=== PATIENT | female | born 2005 | race Caucasian/White ===

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

== ENCOUNTER 2024-07-31 14:04 | Outpatient (CLI) | payer MEDICAID, SELFPAY ==
--- NOTE | 2024-07-31 14:00 | CRLHL7_ITS ---
For Patients: As a result of the Century Cures Act, medical imaging exams and procedure reports are released immediately into your electronic medical record. You may view this report before your referring provider. If you have questions, please contact your health care provider. INDICATION: First trimester scan, establish dates. COMPARISON: None. TECHNIQUE: Real-time hart-scale imaging of the pelvis was performed. FINDINGS: Sonographic imaging demonstrates a single living intrauterine gestation. The embryo demonstrates a regular cardiac rate measuring 167 beats per minute. The embryo`s crown-rump length measurement of 5.9 cm corresponds to a gestational age of 12 weeks 3 days with a sonographic due date of 02/09/2025. There is a normal-appearing yolk sac. There are no gross abnormalities noted within the embryo at this early state of development. The gestational sac has a normal appearance. There is no evidence of a perigestational hemorrhage. The amount of fluid within the sac appears appropriate for gestational age. The cervix is closed. The myometrium appears normal. Normal right ovary. Left ovary not visualized. There are no suspicious fluid collections noted in the cul-de-sac. IMPRESSION: A single living intrauterine with sonographic gestational age 12 weeks 3 days and a sonographic due date of 02/09/2025. Dictated by Jono Leigh MD @ 08/01/2024 9:41:20 AM (Electronically Signed)
--- OUTSIDE RECORDS SUMMARY | 2024-07-31 14:07 | XMS_ITS | Clinical Summary ---
Author Organization [employer] [facility] Address [place], [place] [address] Care Team Providers Care Licensed Sales Assistant Name Role Phone Pcp, No Primary Care Provider Unavailabl e Allergies No known active allergies Medications Medication Sig Dispensed Refills Start Date End Date Status folic acid 1 mg tabletIndications:Jaja migravida in first trimester Take 1 Tablet (1 mg) by mouth once daily. 90 Tablet 03/23/2022 Active Social History Tobacco Use Types Packs/Day Years Used Date Smoking Tobacco: Never Smokeless Tobacco: Never Social Connections Answer Date Recorded Frequency of Communication with Friends and Fami ly Not on file 03/23/2022 Sex and Gender Information Value Date Recorded Sex Assigned at Not on file Gender Identity Not on file Sexual Orientation Not on file Obstetrics History Para Term AB IAB SAB Ectopic Multiple Livin g Live Births 1 Date Outcome GA Total Labor Labor/2nd/3rd Weight Sex Type Anes PTL Trisha A1 A5 Name Clin Last Filed Vital Signs Vital Sign Reading [...] Mass Index 20.12 03/23/2022 3:03 PM CDT Plan of Treatment Health Maintenance Due Date Last Done Comments Well Child Check for age 3-20 01/17/2007 Tdap 02/17/2015 Depression screening for age 12+ 2016 HIV for age 15-65 02/17/2019 HPV series for age 9-26 (1 - 3-dose series) 02/17/2019 Chlamydia for age 16-24 2020 Hepatitis C screening for ag e 18-79 02/17/2022 BMI (ht and wt on same day) for age 18+ 03/23/2023 03/23/2022, 03/23/2022 Tetanus booster 2024 COVID-19 vaccine series (2022- season) 2024 Influenza for age 9-49 07/07/2024 Meningococcal series for age 11-21 Aged Out No longer eligible b ased on patient's age to complete this topic Pneumococcal series for age 6-64 Aged Out No longer eligible b ased on patient's age to complete this topic Care Teams Licensed Sales Assistant Relationship Specialty Start Date End Date Pcp, No . PCP - General 03/23/22
== END 2024-07-31 14:05 | disposition home or self-care (01) ==
LOC: US 14:05
PROVIDERS: Visit Provider Registered Nurse
DX: Z34.91 Encounter for supervision of normal pregnancy, unspecified, first trimester (principal); Z3A.12 12 weeks gestation of pregnancy
CPT/HCPCS: 76801; 76817; T1013

== ENCOUNTER 2024-07-31 14:55 | Outpatient (CLI) | payer MEDICAID, SELFPAY ==
--- OUTSIDE RECORDS SUMMARY | 2024-07-31 14:58 | XMS_ITS | Clinical Summary ---
Author Organization [facility] Address [place], [place] [address] Care Team Providers Care Flattening Machine Operator Name Role Phone Pcp, No Primary Care [...] age to complete this topic Care Teams Flattening Machine Operator Relationship Specialty Start Date End Date Pcp, No . PCP - General 03/23/22
[2024-07-31 18:42] LABS: Chlamydia DNA Amplified* NOT DETECTED (No Detected); GC DNA Amplified* NOT DETECTED (No Detected)
== END 2024-07-31 14:56 | disposition home or self-care (01) ==
PROVIDERS: Visit Provider Registered Nurse
DX: Z34.91 Encounter for supervision of normal pregnancy, unspecified, first trimester (principal); Z3A.12 12 weeks gestation of pregnancy
CPT/HCPCS: 76817; 82728; 83540; 86592; 86703; 86704; 86706; 86762; 86787; 86803; 86850; 86900; 86901; 87086; 87340; 87491; 87591

== ENCOUNTER 2024-09-24 13:45 | Outpatient (CLI) | payer MEDICAID, SELFPAY ==
--- OUTSIDE RECORDS SUMMARY | 2024-09-24 13:47 | XMS_ITS | Clinical Summary ---
Author Organization [employer] [facility] Address [place], [place] [address] Care Team Providers Care Dog Warden Name Role Phone Pcp, No Primary Care [...] 03/23/2022 Tetanus booster 2024 COVID-19 vaccine series (2023- season) 2024 Influenza for age 9-49 07/07/2024 Meningococcal series for age 11-21 Aged Out No longer eligible b ased on patient's age to complete this topic Pneumococcal series for age 6-64 Aged Out No longer eligible b ased on patient's age to complete this topic Care Teams Dog Warden Relationship Specialty Start Date End Date Pcp, No . PCP - General 03/23/22
--- NOTE | 2024-09-24 14:00 | CRLHL7_ITS ---
For Patients: As a result of the Century Cures Act, medical imaging exams and procedure reports are released immediately into your electronic medical record. You may view this report before your referring provider. If you have questions, please contact your health care provider. INDICATION: survey. TECHNIQUE: Conventional transabdominal two-dimensional grayscale ultrasound examination. COMPARISON: None. FINDINGS: There is a living fetus with gestational age of 20 weeks 2 days by LMP and today`s measurements. EDC is 02/09/2025. BPD: 4.9 cm, 20 weeks 6 days Head circumference: 17.5 cm, 20 weeks Abdominal circumference: 15.1 cm, 20 weeks 2 days Femur length: 3.2 cm, 19 weeks 6 days HC/AC: 1.16 The weight is estimated at 332 grams, the 35th percentile. The heart rate is measured at 154 beats per minute and the rhythm appears regular. The head and spine are grossly intact. No gross facial abnormality is evident. The upper lip is intact. Four cardiac chambers are demonstrated. The heart and stomach appear to be on the same side. The diaphragm is intact. Two kidneys and a bladder are demonstrated. The cord insertion is normal and three cord vessels are noted. Four extremities are demonstrated. The amniotic fluid volume is within normal limits. The placenta is posterior with no evidence of previa. The placental cord insertion is marginal, measured at 1.7 cm from the edge of the placenta. The cervical length is normal at 3.4 cm. IMPRESSION: 1. Living fetus with gestational age of 20 weeks 2 days by LMP and today`s measurements. EDC is 02/09/2025. 2. No anomaly evident. 3. Marginal placental cord insertion. Dictated by Ortega Young MD @ 09/25/2024 10:56:48 AM (Electronically Signed)
== END 2024-09-24 13:46 | disposition home or self-care (01) ==
LOC: US 13:45
PROVIDERS: Visit Provider Midwife
DX: Z34.92 Encounter for supervision of normal pregnancy, unspecified, second trimester (principal); Z3A.20 20 weeks gestation of pregnancy
CPT/HCPCS: 76805; T1013

== ENCOUNTER 2024-10-04 17:15 | Outpatient (CLI) | payer MEDICAID, SELFPAY ==
--- OUTSIDE RECORDS SUMMARY | 2024-10-04 17:18 | XMS_ITS | Clinical Summary ---
Author Organization [facility] Address [place], [place] [address] Care Team Providers Care Hand Rigger Name Role Phone Pcp, No Primary Care [...] age to complete this topic Care Teams Hand Rigger Relationship Specialty Start Date End Date Pcp, No . PCP - General 03/23/22
[2024-10-04 17:31] VITALS: PULSE 88; O2SAT 100
[2024-10-04 17:34] VITALS: BP 111/56; PULSE 81
[2024-10-04 17:40] VITALS: RESP 18; TEMP 36.7
--- NOTE | 2024-10-04 18:02 | CRLHL7_ITS ---
For Patients: As a result of the Century Cures Act, medical imaging exams and procedure reports are released immediately into your electronic medical record. You may view this report before your referring provider. If you have questions, please contact your health care provider. INDICATION: Lower abdominal pain/cramping TECHNIQUE: Ultrasound OB pelvis transabdominal. Real-time hart-scale imaging of the fetus was performed. COMPARISON: September 24, 2024 FINDINGS: Sonographic imaging demonstrates a single living intrauterine gestation. Fetus demonstrates a regular cardiac rate of 150 beats per minute. Fetus has a vertex orientation. Amniotic fluid volume appears normal. Single deepest pocket measures 4.88 centimeters. Posterior placenta. No previa. Cervical length of 3.0 centimeters. IMPRESSION.: Viable intrauterine . No abnormalities seen. Amniotic fluid appears normal, single deepest pocket measures 4.8 centimeters. Posterior placenta. No previa. Cervical length of 3.0 centimeters. Recommend continued label pinker follow-up as clinically indicated. Dictated by Alcon Oleary MD @ 10/04/2024 8:08:46 PM (Electronically Signed)
[2024-10-04 18:09] LABS: Appearance Urine Cloudy (Clear); Bilirubin Urine Negative (Negative); Blood Urine Negative (Negative); Color Urine Yellow (Yellow); Glucose Urine Negative (Negative); Ketones Urine Negative (Negative); Leukocyte Esterase Urine Negative (Negative); Nitrite Urine Negative (Negative); Protein Urine Negative (Negative); Specific Gravity Urine 1.025 (1.000-1.030); Urobilinogen Urine 0.2 (0.2-1.0)
[2024-10-04 18:12] LABS: Basophils Absolute Auto 0.03 K/uL (0.00-0.30); Basophils Percent Auto 0.4 % (0.0-3.0); Eosinophils Absolute Auto 0.13 K/uL (0.00-0.50); Eosinophils Percent Auto 1.7 % (0.0-7.0); Hematocrit 33.9 % (33.0-51.0); Hemoglobin* 10.9 gm/dL (12.0-16.0); Immature Granulocytes Abs Auto 0.01 K/uL (0.00-0.30); Immature Granulocytes Pct Auto 0.1 %; Lymphocytes Absolute Auto 1.61 K/uL (0.90-2.90); Lymphocytes Percent Auto 20.7 % (20-44); Mean Corpuscular HGB Conc 32 gm/dL (32-36); Mean Corpuscular Hemoglobin 26 pg (26-34); Mean Corpuscular Volume 82 fL (80-100); Monocytes Percent Auto 5.9 % (0.0-11.0); Neutrophils Absolute Auto 5.55 K/uL (1.7-7.0); Neutrophils Percent Auto 71.2 % (42.0-72.0); Platelet Count* 210 K/uL (140-440); RDW Coefficient of Variation % 14.5 % (11.5-15.5); Red Blood Count 4.16 m/uL (4.00-5.20); White Blood Count* 7.79 K/uL (4.50-11.00)
[2024-10-04 18:15] LABS: Slide Review Reflex No
[2024-10-04 18:32] LABS: RBC Urine 0-2 (0-2); WBC Urine 0-2 (0-5)
[2024-10-04 18:33] LABS: Amorphous Sediment Urine Moderate; Clue Cells No Clue Cells Seen (None Seen); Trichomonas No Trichomonas Seen (None Seen); Yeast No Yeast Seen (None Seen)
[2024-10-04 19:44] LABS: Trichomonas No Trichomonas Seen (None Seen); Yeast No Yeast Seen (None Seen)
[2024-10-04 19:45] LABS: Clue Cells No Clue Cells Seen (None Seen)
--- NOTE | 2024-10-04 20:13 | CRLHL7_ITS ---
For Patients: As a result of the Cures Act, medical imaging exams and procedure reports are released immediately into your electronic medical record. You may view this report before your referring provider. If you have questions, please contact your health care provider. Indication: Right lower quadrant pain Technique: Sonographic evaluation of the right lower quadrant and kidneys Comparison: None Findings: Right kidney: 12.4 x 6.4 x 8.6 centimeters. Moderate hydronephrosis. No calculi. Left kidney: 10.7 x 5.5 x 5.0 centimeters. No hydronephrosis. No calculi. Other: Appendix not visualized. Impression: 1. Moderate right hydronephrosis. 2. Appendix not visualized. Dictated by Kwaku Pineda MD @ 10/04/2024 11:05:14 PM (Electronically Signed)
--- NOTE | 2024-10-04 20:53 | P.OBLDTN_ITS ---
OB - Triage/Final Diagnosis Visit Information Date of evaluation: 10/04/24 Narrative: Beatriz is a 19 year old 2 para 1 at 21.5 weeks gestation by LMP, who presents with abdominal pain. The refrigeration unit repairer via the Ipad was used for this visit. She states that she has had abdominal pain on and off for about a week but it is worse today. It is low below the umbilicus and radiates to the right side. She feels that it comes and goes so has not taken an medications. She denies body aches, fever, chills, nausea, vomiting, urinary symptoms, vaginal pain or burning, discharge, vaginal bleeding and other associated symptoms. She is appreciating good movement. A wet prep was collected by the RN but it was very painful for the patient and blood was noted on the swab. A UA and CBC were also collected. Labs did all come back normal. OB US was performed and showed a viable and active fetus without cervical shortening, an intact placenta, and no free fluid. A speculum exam was performed and she was found to be closed with a scant amount of bright red bleeding noted from the OS and white to hart discharge without odor. A second wet prep was collected with the speculum to ensure a good sample but it was also negative. Dr. Boyd was consulted for further advice and it was decided to offer an abdominal US to which she is agreeable. We discussed possible causes for abdominal pain and vaginal bleeding and what we have done to r/o these causes. We reviewed in depth reasons to return including infection, increased bleeding, increased pain or development of other symptoms. Evaluation Laboratory results: Laboratory Tests 10/04/24 10/04/24 10/04/24 Range/Units 19:30 18:05 17:37 WBC 7.79 (4.50-11.00) K/uL RBC 4.16 (4.00-5.20) m/uL Hgb 10.9 L (12.0-16.0) gm/dL Hct 33.9 (33.0-51.0) % MCV 82 (80-100) fL MCH 26 (26-34) pg MCHC 32 (32-36) gm/dL RDW Coeff of Alondra 14.5 (11.5-15.5) % Plt Count 210 (140-440) K/uL Neut % (Auto) 71.2 (42.0-72.0) % Lymph % (Auto) 20.7 (20-44) % Summers % (Auto) 5.9 (0.0-11.0) % Eos % (Auto) 1.7 (0.0-7.0) % Baso % (Auto) 0.4 (0.0-3.0) % Neut # (Auto) 5.55 (1.7-7.0) K/uL Lymph # (Auto) 1.61 (0.90-2.90) K/uL Summers # (Auto) 0.50 (0.00-0.90) K/UL Eos # (Auto) 0.13 (0.00-0.50) K/uL Baso # (Auto) 0.03 (0.00-0.30) K/uL Abs Immat Gran (auto) 0.01 (0.00-0.30) K/uL Imm/Tot Granulo (auto) 0.1 % Urine Color Yellow (Yellow) Urine Appearance Cloudy A (Clear) Urine pH 7.0 (5.0-8.5) Ur Specific Ferguson 1.025 (1.000-1.030) Urine Protein Negative (Negative) Urine Glucose (UA) Negative (Negative) Urine Ketones Negative (Negative) Urine Blood Negative (Negative) Urine Nitrite Negative (Negative) Urine Bilirubin Negative (Negative) Urine Urobilinogen 0.2 (0.2-1.0) Ur Leukocyte Esterase Negative (Negative) Urine RBC 0-2 (0-2) Urine WBC 0-2 (0-5) Ur Squamous Epith Cells None (None-Few) Amorphous Sediment Moderate A (None) Urine Bacteria None (None) Vaginal Trichomonas No Trichomonas Seen No Trichomonas Seen (None Seen) Vaginal Yeast No Yeast Seen No Yeast Seen (None Seen) Vaginal Clue Cells No Clue Cells Seen No Clue Cells Seen (None Seen) Vital signs: Vital Signs - 24 hr 10/04/24 17:31 10/04/24 17:34 10/04/24 17:40 Temperature 98.1 F Pulse Rate 81 Respiratory Rate 18 Blood Pressure 111/56 L Pulse Oximetry 100 Fetus (Single) Heart Rate Baseline: 150 (per doppler)
[2024-10-04 20:56] VITALS: PULSE 81; RESP 16; O2SAT 99
[2024-10-04 20:57] VITALS: BP 116/56; PULSE 76
--- NOTE | 2024-10-04 22:43 | PC.OBNST ---
NST Note NST Note Start: 10/04/24 22:41 Freq: Status: Active Protocol: Document 10/04/24 22:42 BRM (Rec: 10/04/24 22:43 BRM Desktop) NST Note 2 Para (# of births) 1 EDC 02/09/25 Gestational Age In Weeks & Days 21 Weeks & 5 Days Patient Presented with Complaint(s) of Contractions/cramping,Pain If Pain, describe location lower abdomen across pelvis Reactive Yes Appropriate for Gestational Age Yes SUSAN Winston Date 10/04/24 Reactive Yes Appropriate for Gestational Age Yes SUSAN Ho CNM Date 10/04/24 OB NST charge Yes Complete NST Note via Write Note Yes The provider's electronic signature indicates the NST is reactive/appropriate for gestational age. *Note to provider: If an addendum is required, open the patient's chart and click on the note under the Nurse/Allied Health tab.
== END 2024-10-04 22:15 | disposition home or self-care (01) ==
LOC: OB OUT 17:17 → OB 17:18
PROVIDERS: Advanced Practice Midwife; Visit Provider Obstetrics & Gynecology
DX: R10.31 Right lower quadrant pain (principal); N13.30 Unspecified hydronephrosis
CPT/HCPCS: 36415; 59025; 76705; 76815; 81001; 81003; 85025; 87210; G0463

== ENCOUNTER 2024-11-21 09:04 | Outpatient (CLI) | payer MEDICAID, SELFPAY ==
--- NOTE | 2024-11-21 09:15 | CRLHL7_ITS ---
For Patients: As a result of the Century Cures Act, medical imaging exams and procedure reports are released immediately into your electronic medical record. You may view this report before your referring provider. If you have questions, please contact your health care provider. OB ULTRASOUND LMP: 05/05/2024. KRZYSZTOF by LMP: 02/09/2025. GA: 28 w, 4 d. Single. INDICATION: Marginal cord insertion. TECHNIQUE: Real time grayscale imaging of the fetus was performed. Transabdominal. CERVIX: Not visualized. POSITIONING: Vertex. AMNIOTIC FLUID: 6.5 cm. SDP (N: greater than 2 x 1 cm) PLACENTA: Technique: Transabdominal. PLACENTA POSITION: Posterior. DOPPLER: heart rate: 141 bpm. BIOMETRY: BPD: 7.4 cm. 29 w, 5 d, 74 percent. HC: 26.6 cm. 29 w, 0 d, 30 percent. AC: 23.7 cm. 28 w, 0 d, 27 percent. FL: 5.1 cm. 27 w, 2 d, 8 percent. FL/AC ratio: 21.46 percent. HC/AC ratio: 1.12. EFW: 1154 g. Weight: 2 lbs, 9 oz. age by this US: 28 w, 4 d. KRZYSZTOF by this US: 02/09/2025. Percentile by KRZYSZTOF: 18.2 percent. IMPRESSION: 1. Sonographic gestational age 28 weeks 4 days and sonographic due date 02/09/2025. Good correlation with dates. Normal interval growth. 2. Estimated weight 18th percentile. Abdominal circumference 27th percentile. Jono Leigh M.D. Diagnostic Radiologist [email or web address] GALINA/garth liang/Dictated by: Jono Leigh MD @ 11/21/2024 10:26:00 AM (Electronically Signed)
== END 2024-11-21 09:05 | disposition home or self-care (01) ==
LOC: US 09:04
PROVIDERS: Visit Provider Registered Nurse
DX: O43.193 Other malformation of placenta, third trimester (principal); Z3A.28 28 weeks gestation of pregnancy
CPT/HCPCS: 76816; 86592; T1013

== ENCOUNTER 2024-12-02 11:12 | Outpatient (CLI) | payer MEDICAID, SELFPAY ==
--- NOTE | 2024-12-02 11:30 | CRLHL7_ITS ---
For Patients: As a result of the Century Cures Act, medical imaging exams and procedure reports are released immediately into your electronic medical record. You may view this report before your referring provider. If you have questions, please contact your health care provider. INDICATION: Flank pain right lower quadrant pain. TECHNIQUE: Limited ultrasound examination of the abdomen, kidneys and bladder was performed. Grayscale and color Doppler images were obtained. COMPARISON: Ultrasound abdomen 10/04/2024. FINDINGS: Right kidney: 12.8 x 6.2 x 6.2 cm. Normal in size and echogenicity. Normal cortex. No suspicious renal masses. Moderate hydroureteronephrosis. 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 Left kidney: 9.2 x 5.0 x 4.0 cm. Normal in size and echogenicity. Normal cortex. No suspicious renal masses. No hydronephrosis or obstructive calculus identified. Bladder: Unremarkable. Prevoid volume of 11 mL. Postvoid volume of 8 mL. Color Doppler images reveal a normal left ureteral jet. No normal right ureteral jet. Other: No blind-ending tubular structure seen in the right lower quadrant, limited evaluation for acute appendicitis on this ultrasound examination. IMPRESSION: 1. Moderate right-sided hydronephrosis without obstructing mass lesion or urinary calculus identified. Recommend CT for further evaluation. 2. Limited evaluation for acute appendicitis, no normal appendix was identified sonographically. Dictated by Jayden Ivey MD @ 12/02/2024 2:39:38 PM (Electronically Signed)
== END 2024-12-02 11:13 | disposition home or self-care (01) ==
LOC: US 11:13
PROVIDERS: Visit Provider Advanced Practice Midwife
DX: R10.31 Right lower quadrant pain (principal); N13.30 Unspecified hydronephrosis
CPT/HCPCS: 76705; 87086

== ENCOUNTER 2024-12-30 08:57 | Outpatient (CLI) | payer MEDICAID, SELFPAY ==
--- NOTE | 2024-12-30 09:15 | CRLHL7_ITS ---
For Patients: As a result of the Century Cures Act, medical imaging exams and procedure reports are released immediately into your electronic medical record. You may view this report before your referring provider. If you have questions, please contact your health care provider. OB ULTRASOND FOLLOWUP LIMITED, 12/30/2024 CLINICAL HISTORY: Marginal cord insertion. TECHNIQUE: Transabdominal OB ultrasound. Real time hart scale imaging of the fetus was performed. COMPARISON: 11/21/2024, 10/04/2024, 09/24/2024. FINDINGS: Gestation: Single. LMP: 05/05/2024. KRZYSZTOF by LMP: 02/09/2025. GA: 34 weeks 1 day. Cervix: Not visualized. Positioning: Vertex. Amniotic Fluid: 5.2 cm. Placenta: Technique: TA. Placenta Position: Posterior. Dopplers: Heart Rate: 129 bpm. Biometry: BPD: 8.4 cm, 33 weeks 5 days. 36.8% HC: 30.4 cm, 33 weeks 6 days. 10.9% AC: 29.1 cm, 33 weeks 1 day. 23.5% FL: 6.1 cm, 31 weeks 3 days. <3% EFW: 9 grams, 4 lb 8 oz. Age by this US: 33 weeks 0 days. KRZYSZTOF by this US: 02/17/2025. Percentile by KRZYSZTOF: 11.4% IMPRESSION: 1. Sonographic gestational age 33 weeks 0 days and sonographic due date 02/17/2025. Sonographic age 8 days behind the clinical age. 2. Estimated weight 11th percentile. Abdominal circumference 24th percentile. Femur length less than 3rd percentile. Jono Leigh M.D. Diagnostic Radiologist [email or web address] Transcribed: 1:40 pm DW/Dictated by: Jono Leigh MD @ 12/30/2024 12:53:00 PM (Electronically Signed)
== END 2024-12-30 08:58 | disposition home or self-care (01) ==
LOC: US 08:58
PROVIDERS: Visit Provider Registered Nurse
DX: O43.193 Other malformation of placenta, third trimester (principal); O36.5930 Maternal care for other known or suspected poor fetal growth, third trimester, not applicable or unspecified; Z3A.33 33 weeks gestation of pregnancy
CPT/HCPCS: 76816; T1013

== ENCOUNTER 2025-01-13 11:23 | Outpatient (CLI) | payer MEDICAID, SELFPAY | END 2025-01-13 11:24 | disposition home or self-care (01) | LOC: NFLDREF 01-15 05:41 | PROVIDERS: Visit Provider Physician Assistant | DX: Z34.83 Encounter for supervision of other normal pregnancy, third trimester (principal) | CPT/HCPCS: 87081; 87653 ==

== ENCOUNTER 2025-01-21 12:07 | Outpatient (CLI) | payer MEDICAID, SELFPAY ==
--- NOTE | 2025-01-21 12:15 | CRLHL7_ITS ---
For Patients: As a result of the Century Cures Act, medical imaging exams and procedure reports are released immediately into your electronic medical record. You may view this report before your referring provider. If you have questions, please contact your health care provider. US OB PELVIS OB FOLLOW-UP GROWTH CLINICAL HISTORY: LMP: 05/05/2024. KRZYSZTOF by LMP: 02/09/2025. GA: 37w, 2d. Single. Surgery: No. Comparison: 12/30/2024, 11/21/2024, 10/04/2024, 09/24/2024. INDICATION: Malformation of placenta. CERVIX: Not visualized. POSITIONING: Vertex. AMNIOTIC FLUID: 2.5 cm. BIOPHYSICAL PROFILE: Total score: 8. Gross body movements: 2. tone: 2. Respiratory activity: 2. Amniotic fluid: 2. (SDP N: Increase 2 x 1 cm) PLACENTA: Technique: Transabdominal. PLACENTA POSITION: Posterior. DOPPLER: heart rate: 154 bpm. Umbilical artery: 2.1 S/D. >34w=<3.5 Biometry: BPD: 8.8 cm. 35w, 3d, 19 percent. HC: 31.6 cm. 35w, 4d, 3 percent. AC: 31.1 cm. 35w, 0d, 10 percent. FL: 6.6 cm. 33w, 6d, <3 percent. FL/AC ratio: 21.14 percent. HC/AC ratio: 1.02. EFW: 2528 g. Weight: 5 lbs, 9 oz. age by this US: 35w, 0d. KRZYSZTOF by this US: 02/25/2025. Percentile by KRZYSZTOF: 7.6 percent. IMPRESSION: 1. Sonographic gestational age 35 weeks 0 days and sonographic due date 02/25/2025. Sonographic age is 16 days behind the clinical age. Estimated weight 8th percentile. Abdominal circumference 10th percentile. Femur length less than 3rd percentile. 2. Umbilical artery Doppler normal with SD ratio 2.1. 3. Normal biophysical profile 06/13. Jono Leigh M.D. Diagnostic Radiologist [employer] [email or web address] SP/Dictated by: Jono Leigh MD @ 01/21/2025 1:34:00 PM (Electronically Signed)
== END 2025-01-21 12:08 | disposition home or self-care (01) ==
LOC: US 12:08
PROVIDERS: Visit Provider Advanced Practice Midwife
DX: O43.193 Other malformation of placenta, third trimester (principal); O36.5930 Maternal care for other known or suspected poor fetal growth, third trimester, not applicable or unspecified; Z3A.35 35 weeks gestation of pregnancy
CPT/HCPCS: 76816; 76819; 76820; T1013

== ENCOUNTER 2025-01-24 11:42 | Outpatient (CLI) | payer MEDICAID, SELFPAY ==
[2025-01-24] VITALS (8 sets, daily range): BP systolic 117–129; BP diastolic 67–69; PULSE 78–92; RESP 14–16; TEMP 36.4–37; O2SAT 98–99; BMI 22.9
--- NOTE | 2025-01-24 17:01 | P.OBHP_ITS ---
OB - H&P: HPI Labor/Induction History of Present Illness Date Seen: 01/24/25 Chief Complaint: Beatriz is a 19 year old 2 para 1 at 37.5 weeks gestation by LMP, who presents with spontaneous labor. She reports contractions since last evening at 1700, denies leaking of fluid and vaginal bleeding. She was observed over approximately 4 hours and has made slow change from 3cm to 4cm since arrival. She was recently diagnosed with IUGR with EFW 7.9%. Chief complaint: maternity : 2 Para: 1 Narrative: Beatriz Estrella is a 19 year old female OB H&P Gestational age: 37 weeks 5/7 days??? Patient's care began at 12 and 3/7 weeks gestation.? She is dated by first trimester US consistent with LMP.? EDC is 02/09/25.? She has had routine visits since that time.? Current BMI: 23.0 IMAGING:??? 1st trimester: 07/31/24 1st tri US: A single living intrauterine with sonographic gestational age 12 weeks 3 days and a sonographic due date of 0 02/09/2025. (Consistent with LMP colleen)? Anatomy scan: 1. Living fetus with gestational age of 20 weeks 2 days by LMP and today`s measurements. EDC is 02/09/2025. 2. No anomaly evident. 3. Marginal placental cord insertion. Others: 10/04/24: Viable intrauterine . No abnormalities seen. Amniotic fluid appears normal, single deepest pocket measures 4.8 centimeters. Posterior placenta. No previa. Cervical length of 3.0 centimeters. Recommend continued verification manager follow-up as clinically indicated.??? 11/21/24: 1. Sonographic gestational age 28 weeks 4 days and sonographic due date 02/09/2025. Good correlation with dates. Normal interval growth. 2. Estimated weight 18th percentile. Abdominal circumference 27th percentile. 12/30/24: 1. Sonographic gestational age 33 weeks 0 days and sonographic due date 02/17/2025. Sonographic age 8 days behind the clinical age. 2. Estimated weight 11th percentile. Abdominal circumference 24th percentile. Femur length less than 3rd percentile. 01/21/25: 1. Sonographic gestational age 35 weeks 0 days and sonographic due date 02/25/2025. Sonographic age is 16 days behind the clinical age. Estimated weight 8th percentile. Abdominal circumference 10th percentile. Femur length less than 3rd percentile.2. Umbilical artery Doppler normal with SD ratio 2.1. 3. Normal biophysical profile 06/13. ?? Specific Issues/Plans G 2 P 1001 Partner: H&P: Lab and imaging documentation completed 01/19/25: # IUGR 7.6% dx at 37.2 weeks. SDP 2.5cm. UA dopplers and NST scheduled for 01/28/25, IOL scheduled for 01/30/25 # Marginal cord. Growth at 28 wks: 18.2 %ile Growth at 34 wks: 11.4 %ile Growth at 37-38 wks: 7.6 %ile # Czech-speaking # Iron def. anemia: rec. qod iron supplement - Resolved Nob: hgb 10.9, MCV low, ferritin 18.5 28 weeks: Hgb 10.5, switched to QOD 12/30/24: Hgb 11.0 #Right hydronephrosis possible kidney stone at 30 wks 12/03/2024: Seen by Jamil Egan, no intervention needed at this time. Imagin07/31/24 1st tri US: A single living intrauterine with sonographic gestational age 12 weeks 3 days and a sonographic due date of 02/09/2025. (Consistent with LMP colleen) Vaccinations: COVID: 07/31/24 Flu: 07/31/24 Tdap: 12/02/24 RSV: 12/30/24 32 week mental health: 12/16 34wk hgb: 11.0 12/30/24 Last pap: never OB H&P Gestational age: 37 weeks 2/7 days? Subjective:??? 19 yo at 37 weeks 2 days that presents for visit. She has received routine care.??? Imagin07/31/24 1st tri US: A single living intrauterine with sonographic gestational age 12 weeks 3 days and a sonographic due date of 02/09/2025. (Consistent with LMP colleen)? Anatomy scan: 1. Living fetus with gestational age of 20 weeks 2 days by LMP and today`s measurements. EDC is 02/09/2025. 2. No anomaly evident. 3. Marginal placental cord insertion. Others: 10/04/24: Viable intrauterine . No abnormalities seen. Amniotic fluid appears normal, single deepest pocket measures 4.8 centimeters. Posterior placenta. No previa. Cervical length of 3.0 centimeters. Recommend continued verification manager follow-up as clinically indicated.??? 11/21/24: 1. Sonographic gestational age 28 weeks 4 days and sonographic due date 02/09/2025. Good correlation with dates. Normal interval growth. 2. Estimated weight 18th percentile. Abdominal circumference 27th percentile. 12/30/24: 1. Sonographic gestational age 33 weeks 0 days and sonographic due date 02/17/2025. Sonographic age 8 days behind the clinical age. 2. Estimated weight 11th percentile. Abdominal circumference 24th percentile. Femur length less than 3rd percentile. 01/21/25: 1. Sonographic gestational age 35 weeks 0 days and sonographic due date 02/25/2025. Sonographic age is 16 days behind the clinical age. Estimated weight 8th percentile. Abdominal circumference 10th percentile. Femur length less than 3rd percentile.2. Umbilical artery Doppler normal with SD ratio 2.1. 3. Normal biophysical profile 06/13. ? OB Labs:? Blood type: A+, antibody screen negative.? Hgb (12/30/24): 11.0? Platelets (12/02/24): 207? Rubella: Immune? RPR: non-reactive? HBsAg: negative? HIV: negative? GC/Chlamydia: negative/negative? Pap (Never had): ? 1hr gtt: 89? GBS (01/13/25): negative? History of Present Dating criteria: based on LMP care: good care Ultrasounds: normal 1st trimester US Medical complications: none Review of Systems Status of ROS: Reports: 10 or more systems reviewed and unremarkable except as noted in History and below Meds Home Medications and Allergies Home Medications ?Medication ?Instructions ?Recorded ?Confirmed ?Type docosahexaenoic acid 200 mg mg PO 07/31/24 01/21/25 History capsule ( DHA) Allergies Allergy/AdvReac Type Severity Reaction Status Date / Time No Known Allergies Allergy Verified 01/21/25 12:48 OB - H&P: Exam Physical Exam: Vital signs: Temp Pulse Resp BP Pulse Ox 97.9 F 79 14 129/67 99 01/24/25 15:45 01/24/25 15:45 01/24/25 15:45 01/24/25 15:45 01/24/25 11:48 Narrative: VSS? General Appearance:? Alert,?appropriate appearance?for age. No acute distress? HEENT Exam:? Grossly?normal.? Neck / Thyroid Exam:? Supple? Chest/Respiratory Exam: Normal respiratory effort, symmetrical chest wall rise. Clear to auscultation.? Cardiovascular Exam: Regular rate and rhythm. S1, S2, no murmur, click, gallop, or rubs.? Gastrointestinal Exam: non-tender,? Gravid??? Musculoskeletal Exam: Back is straight and non-tender, full ROM of upper and lower extremities.? Skin: no rash or abnormalities? Neurologic Exam: Normal gait and speech, no tremor.? Psychiatric Exam: Alert and oriented, appropriate affect.??? Ctx:? Q 2-4 min apart.? ? ? Strong? FHTs:? Baseline:140.? Variability: moderate.?? Accels: +.??? Decels:? early.? SVE: 50/-2? Membranes: intact? OB - Problem Based A/P Additional Plan (1) IUGR (intrauterine growth restriction) affecting care of mother: Status: Acute (2) Marginal insertion of umbilical cord affecting management of mother: Status: Acute (3) 37 weeks gestation of : Status: Acute (4) Pain during labor: Status: Acute Plan Assessment:?? at 37.5 weeks gestation?? GBS negative? Patient is coping well with challenges of labor.?? Labor type: Spontaneous, Early labor? Category 1 FHR pattern.? complicated by: IUGR with EFW 7.6% Marginal cord insertion Iron deficiency anemia now resolved with iron supplementation Plan:?? * ?Admit to L & D? * IV access: none * Monitoring per policy: continuous ? * Candidate for analgesia of choice.? Planning nothing for pain management * Expectant management at this time ? * Patient encouraged to reposition and ambulate to promote physiologic labor and . * Anticipate ? Delivery/Labor/Induction Plan Plan: expectant management
--- NOTE | 2025-01-24 21:23 | P.DS_ITS ---
DS: Providers Provider Date Seen: 01/24/25 Date of admission: 01/24/25 16:33 Primary care physician: Not a Local Provider Admitting Clinician: Katlin Mendoza CNM Consults: 01/24/25 12:09 Consult to Top Lift And Automatic Window Repairer [CONS] Routine Comment: Reason for Consult:: Welt Treater Needed Attending Physician on discharge: Katlin Mendoza CNM Date of Discharge: 01/24/25 DS: Diagnosis Discharge Diagnosis (1) 37 weeks gestation of : Status: Acute (2) IUGR (intrauterine growth restriction) affecting care of mother: Status: Acute (3) contractions: Status: Acute Exam Narrative: Exam Narrative: VSS? General Appearance:? Alert,?appropriate appearance?for age. No acute distress? Gastrointestinal Exam: non-tender,? Gravid??? Musculoskeletal Exam: Back is straight and non-tender, full ROM of upper and lower extremities.? Skin: no rash or abnormalities? Neurologic Exam: Normal gait and speech, no tremor.? Psychiatric Exam: Alert and oriented, appropriate affect.? SVE: 4/50/-2, vertex Ctx:? Q 2-5 min apart.? ? Moderate? ? FHTs:? Baseline: 135.? Variability: moderate.?? Accels: +.??? Decels:? occasional spontaneous variables.? Membranes: intact? Const: Vital Signs, click to edit/add: Vital Signs - 24 hr 01/24/25 11:47 01/24/25 11:48 01/24/25 11:48 Temperature 97.5 F L Pulse Rate 92 Respiratory Rate Blood Pressure 122/68 Pulse Oximetry 99 01/24/25 11:48 01/24/25 15:45 01/24/25 15:45 Temperature Pulse Rate 79 Respiratory Rate 16 Blood Pressure 129/67 Pulse Oximetry 01/24/25 15:45 01/24/25 15:45 01/24/25 17:30 Temperature 97.9 F 98.6 F Pulse Rate Respiratory Rate 14 Blood Pressure Pulse Oximetry 01/24/25 17:30 01/24/25 19:19 01/24/25 19:19 Temperature 98.6 F Pulse Rate 92 Respiratory Rate 16 16 Blood Pressure 119/69 Pulse Oximetry 01/24/25 19:20 Temperature Pulse Rate Respiratory Rate Blood Pressure Pulse Oximetry 98 Documenting provider has reviewed patient's vital signs: yes OB - DS: Summary Hospital Course Hospital Course: The patient is a 19 year old G 2 P 1 at 37.5 weeks gestation that was admitted to the Center on 01/24/25 for slow cervical change control specialist approximately 4 hours. She has continued to contract irregularly with periods of spaced out contractions approximately 8-10 minutes apart and periods of contractions every 2-4 minutes She appears comfortable and is not breathing through her co ntractions at this time. Repeat cervical exam was done with consent via probation and patrol agent, no change in dilation. Reviewed guidelines do not allow augmentation of her labor at this time due to her gestation. Given no change in dilation and contractions are not increasing in intensity recommended she discharge home. Offered MS and Vistaril for help with sleep tonight, pt declines at this time. Instructed to return for routine clinic visit if she does not return in labor before that time. Time Spent with Patient Time attestation: Total time spent providing and/or coordinating discharge services: Discharge Plan Discharge Disposition: Home, Self-Care Date of Admission: 01/24/25 16:33 Attending Provider on Discharge: Katlin Mendoza Primary Care Provider: Provider,Not a Local Condition: Stable Anticipated Discharge Date/Time: 01/24/25 21:30 Discharge Medications: Continued DHA 200 mg capsule PO ondansetron HCl 4 mg tablet 4 mg PO Q8H PRN (Reason: nausea and vomiting) Qty: 14 0RF ferrous sulfate 325 mg (65 mg iron) tablet 325 mg PO Q OTHER DAY Qty: 90 1RF Discharge Orders: Discharge Order (Routine); Ordered 01/24/25 Ordered By: Katlin Mendoza Consulting provider completed their portion of the discharge: Yes Patient Education: OB Undelivered at 35 weeks IUP or more Additional Instructions: Keep next scheduled appointment in clinic. Return to signs of active labor: regular painful contractions increasing in intensity, if your water breaks, if you have concerns about decreased or no movement. Activity Level: Activity as Tolerated Discharge Diet: Regular Follow Up Appointments: [facility] [Provider Group] Forms: [employer] Info Instructions
== END 2025-01-24 21:50 | disposition home or self-care (01) ==
LOC: OB OUT 11:42 → OB 11:42 → OB OUT 16:33 → OB 21:26
PROVIDERS: Visit Provider Advanced Practice Midwife
DX: O47.03 False labor before 37 completed weeks of gestation, third trimester (principal); Z3A.37 37 weeks gestation of pregnancy
CPT/HCPCS: 86592; G0463; T1013

== ENCOUNTER 2025-01-26 14:40 | Inpatient (IN) | payer MEDICAID, SELFPAY ==
[2025-01-26] VITALS (23 sets, daily range): BP systolic 110–141; BP diastolic 57–82; PULSE 75–85; RESP 16–18; TEMP 37.1–37.2; O2SAT 97; BMI 22.8
--- NOTE | 2025-01-26 14:47 | P.LDBA_ITS ---
Subjective History of Present Illness Date Seen: 01/26/25 Narrative: Beatriz is being admitted to Labor and Delivery for IOL. She was in for suspected labor on Monday where she made change initially but stopped making change so went home that evening. State that she has continued to contract since then with only occasional breaks and has not had much sleep in that time. She is a 19 year old at 38.0 weeks gestation. Her full history and physical was dictated by Beti Mendoza on 01/24/25. Please see this for details. We discussed option of staying to see if there is continued cervical change since there has been minimal change since her exam on Monday. Would plan to recheck in about 2 hours. Also discussed staying for IOL since she is 38.0 weeks today and has IUGR. After discussion with her partner she would like to stay for IOL as she is exhausted and doesn't feel she can continue to cope with this prodromal labor. We reviewed options for IOL including AROM and Pitocin. We did briefly discuss Cytotec but given her dilation and effacement it would not be beneficial. She would like to proceed with AROM and consider Pitocin if needed. Discussed risks and benefits of each and answered questions. Vision Mixer was used through the ipad until an in person executive recruiter was available and used for the remainder of the conversation. Specific Issues/Plans G 2 P 1001 Partner: H&P: Lab and imaging documentation completed 01/19/25: # IUGR 7.6% dx at 37.2 weeks. SDP 2.5cm. UA dopplers and NST scheduled for 01/28/25, IOL scheduled for 01/30/25 # Marginal cord. Growth at 28 wks: 18.2 %ile Growth at 34 wks: 11.4 %ile Growth at 37-38 wks: 7.6 %ile # [place]-speaking # Iron def. anemia: rec. qod iron supplement - Resolved Nob: hgb 10.9, MCV low, ferritin 18.5 28 weeks: Hgb 10.5, switched to QOD 12/30/24: Hgb 11.0 #Right hydronephrosis possible kidney stone at 30 wks 12/03/2024: Seen by Jamil Egan, no intervention needed at this time. Imagin07/31/24 [facility] tri US: A single living intrauterine with sonographic gestational age 12 weeks 3 days and a sonographic due date of 02/09/2025. (Consistent with LMP colleen) Vaccinations: COVID: 07/31/24 Flu: 07/31/24 Tdap: 12/02/24 RSV: 12/30/24 32 week mental health: 12/16 34wk hgb: 11.0 12/30/24 Last pap: never OB H&P Gestational age: 37 weeks 2/7 days? Subjective:??? 19 yo at 37 weeks 2 days that presents for visit. She has received routine care.??? Imagin07/31/24 [facility] tri US: A single living intrauterine with sonographic gestational age 12 weeks 3 days and a sonographic due date of 02/09/2025. (Consistent with LMP colleen)? Anatomy scan: 1. Living fetus with gestational age of 20 weeks 2 days by LMP and today`s measurements. EDC is 02/09/2025. 2. No anomaly evident. 3. Marginal placental cord insertion. Others: 10/04/24: Viable intrauterine . No abnormalities seen. Amniotic fluid appears normal, single deepest pocket measures 4.8 centimeters. Posterior placenta. No previa. Cervical length of 3.0 centimeters. Recommend continued dry charge process attendant follow-up as clinically indicated.??? 11/21/24: 1. Sonographic gestational age 28 weeks 4 days and sonographic due date 02/09/2025. Good correlation with dates. Normal interval growth. 2. Estimated weight 18th percentile. Abdominal circumference 27th percentile. 12/30/24: 1. Sonographic gestational age 33 weeks 0 days and sonographic due date 02/17/2025. Sonographic age 8 days behind the clinical age. 2. Estimated weight 11th percentile. Abdominal circumference 24th percentile. Femur length less than 3rd percentile. 01/21/25: 1. Sonographic gestational age 35 weeks 0 days and sonographic due date 02/25/2025. Sonographic age is 16 days behind the clinical age. Estimated weight 8th percentile. Abdominal circumference 10th percentile. Femur length less than 3rd percentile.2. Umbilical artery Doppler normal with SD ratio 2.1. 3. Normal biophysical profile 06/13. ? OB Labs:? Blood type: A+, antibody screen negative.? Hgb (12/30/24): 11.0? Platelets (12/02/24): 207? Rubella: Immune? RPR: non-reactive? HBsAg: negative? HIV: negative? GC/Chlamydia: negative/negative? Pap (Never had): ? 1hr gtt: 89? GBS (01/13/25): negative? OB - Problem Based A/P Additional Plan (1) Encounter for induction of labor: Status: Acute (2) Pain during labor: Status: Acute (3) IUGR (intrauterine growth restriction) affecting care of mother: Status: Acute (4) Anemia: Status: Acute Plan ASSESSMENT:? at 38.0 weeks gestation? GBS negative ? complicated by: IUGR (7.6%), marginal cord insertion (named as marginal and testing complete but not marginal based on definition as it was 1.7cm from the cervical OS), anemia (resolved with PO supplementation), and right hydronephrosis (resolved) Labor type: IOL for IUGR? Blood type:?A+ PLAN:? 1. Reviewed risks and benefits of IOL with Pitocin vs AROM. Pt prefers []. [] to follow if needed.? 4. Candidate for analgesia of choice. Planning unmedicated .?Open to epidural only if needed. 5. Monitor blood pressures. Consider labs if continue to be elevated.? 6. Anticipate ? 7. Expectant management at this time.? Delivery/Labor/Induction Plan Plan: induction Induction method: AROM OB Result Labs Blood Type: A (+) positive Rubella: immune RPR/VDLR: nonreactive GBS Status: negative HBsAG: negative OB Exam Physical Exam Vital signs: Temp Resp 98.7 F 16 01/26/25 13:40 01/26/25 13:40 Narrative: sychiatric:? Alert and oriented x3? HEENT:? Normocephalic, atraumatic? Neck:? Supple without adenopathy or thyromegaly? Lungs:? Clear to auscultation bilaterally? Heart:? Regular rate and rhythm, no murmur, rub or gallop? Abdomen:? Soft, nontender, and gravid? Extremities:? No edema or erythema? Detailed Labor and Delivery Exam Patient Gravid: Yes Dilation (cm): 4 Effacement (%): 80 Cervix position: posterior Consistency: soft Contraction Frequency: 5-10 Contraction intensity: Moderate Fetus (Single) Station: -2 Amniotic Membrane Status: AROM Amniotic Membrane Fluid Description: Clear Heart Rate Baseline: 135 Monitor Accelerations: Present Monitor Decelerations: None Senior Care Variability: Moderate (6-25)
[2025-01-26 15:16] LABS: Basophils Absolute Auto 0.05 K/uL (0.00-0.30); Basophils Percent Auto 0.5 % (0.0-3.0); Eosinophils Percent Auto 1.1 % (0.0-7.0); Hematocrit 33.1 % (33.0-51.0); Hemoglobin* 10.8 gm/dL (12.0-16.0); Immature Granulocytes Abs Auto 0.09 K/uL (0.00-0.30); Lymphocytes Percent Auto 19.5 % (20-44); Mean Corpuscular HGB Conc 33 gm/dL (32-36); Mean Corpuscular Hemoglobin 26 pg (26-34); Mean Corpuscular Volume 80 fL (80-100); Monocytes Percent Auto 7.2 % (0.0-11.0); Neutrophils Absolute Auto 6.66 K/uL (1.7-7.0); Neutrophils Percent Auto 70.7 % (42.0-72.0); Platelet Count* 192 K/uL (140-440); RDW Coefficient of Variation % 13.5 % (11.5-15.5); Red Blood Count 4.12 m/uL (4.00-5.20); White Blood Count* 9.42 K/uL (4.50-11.00)
[2025-01-26 15:18] LABS: Slide Review Reflex No
[2025-01-26] MEDS: OXYTOCIN 30 unit/500 ML in NS 30 UNIT/500 ML BAG 300 UNIT IVPB (19:51)
--- NOTE | 2025-01-26 19:58 | W.PM.OBVAGDE ---
OB Procedure Vag Delivery Mother Details Mother Details: The patient is a 19 year-old, 2, Para 1, admitted on 01/26/25 at 38.0 Days gestation. : 2 Para: 2 Weeks Gestation: 38.0 Admission Date: 01/26/25 Additional Details Amniotic Membrane Status: AROM Amniotic Membrane Rupture Date: 01/26/25 Amniotic Membrane Rupture Time: 15:37 Amniotic Membrane Fluid Description: Clear Analgesia/Anesthesia Type: None Waterbirth: No Pitcoin: Yes ([facility] only) Intrapartal Events: Labor Induction (AROM only) Labor Onset: 16:00 Complete: 19:32 Pushin:32 Heart: heart tones during second stage were difficult to trace due to rapid descent and very short second stage. FHR ranged from 115-150. Delivery Details Delivery Date: 01/26/25 Delivery Time: 19:39 Route of delivery: Infant Gender: Male Viability: Alive; Heart Rate Present Position at Delivery: OA Delivery Details: Patient was admitted for IOL for IUGR and progressed normally with AROM. AROM noted at 1537 with clear fluid. Patient was presumed complete with pushing at 1632. of a viable male at 1939 in left tilt. Vertex delivered OA. No shoulder Loose nuchal x1 reduced before delivery of the body and hand by face at delivery. Body delivered easily and without incident. passed to mothers abdomen with a vigorous cry. Cord was clamped and cut at ~4 minutes. APGARS were 8 at one minute and 9 at five minutes respectively. Mouth was bulb suctioned. Intact placenta with a 3 vessel cord delivered spontaneously at 1950. Fundus firm. Intact perineum identified and no repaired was needed. QBL 150 cc. Mother and baby stable; mother plans to breastfeed. weight pending.? 1 Minute Interval Total Score: 8 5 Minute Interval Total Score: 9 Additional Details Shoulder Dystocia: No Placenta Delivery Time: 19:50 Placental Delivery Description: Spontaneous Procedure Done: Global Blood Loss: 150 Laceration: None Episiotomy Description: None Blood Loss Measurement Type: QBL Bakri Used: No Sponge/Need Count Correct: Yes Cord Vessel Description: 3 Vessels, Nuchal Cord and Reduced Event Summary Status: Mother and infant were stable after delivery. Disposition: floor
[2025-01-27 05:08] VITALS: BP 102/66; PULSE 70; RESP 16; TEMP 36.7; O2SAT 98
[2025-01-27 06:28] LABS: Hemoglobin* 10.2 gm/dL (12.0-16.0)
--- NOTE | 2025-01-27 07:49 | P.DS_ITS ---
DS: Providers Provider Date Seen: 01/27/25 Date of admission: 01/26/25 14:40 Primary care physician: Not a Local Provider Admitting Clinician: Daniella Ho CNM Consults: 01/26/25 13:40 Consult to Senior Government Program Analyst [CONS] Routine Comment: Reason for Consult:: Director Organizational Needed Attending Physician on discharge: Jason WAGGONER Date of Discharge: 01/27/25 DS: Diagnosis Discharge Diagnosis (1) care and examination of lactating mother: Status: Acute Exam Const: Vital Signs, click to edit/add: Vital Signs - 24 hr 01/26/25 13:40 01/26/25 15:56 01/26/25 15:56 Temperature 98.7 F 98.8 F Pulse Rate 80 Pulse Rate [Pulse Oximeter] Respiratory Rate 16 18 Blood Pressure 114/57 L Blood Pressure [Le ft Arm] Pulse Oximetry Oxygen Delivery Me thod 01/26/25 17:00 01/26/25 17:01 01/26/25 18:05 Temperature 98.8 F 98.7 F Pulse Rate 83 Pulse Rate [Pulse Oximeter] Respiratory Rate 18 18 Blood Pressure 110/64 Blood Pressure [Le ft Arm] Pulse Oximetry Oxygen Delivery Me thod 01/26/25 19:03 01/26/25 19:08 01/26/25 19:51 Temperature 98.7 F Pulse Rate 85 78 Pulse Rate [Pulse Oximeter] Respiratory Rate 18 Blood Pressure 140/82 H 116/66 Blood Pressure [Le ft Arm] Pulse Oximetry Oxygen Delivery Me thod 01/26/25 20:07 01/26/25 20:15 01/26/25 20:22 Temperature 98.7 F Pulse Rate 85 85 Pulse Rate [Pulse Oximeter] Respiratory Rate 18 Blood Pressure 132/61 141/63 H Blood Pressure [Le ft Arm] Pulse Oximetry Oxygen Delivery Me thod 01/26/25 20:30 01/26/25 20:37 01/26/25 20:45 Temperature 98.7 F 98.7 F Pulse Rate 77 Pulse Rate [Pulse Oximeter] Respiratory Rate 18 18 Blood Pressure 126/63 Blood Pressure [Le ft Arm] Pulse Oximetry Oxygen Delivery Me thod 01/26/25 20:52 01/26/25 21:00 01/26/25 21:07 Temperature 98.7 F Pulse Rate 79 83 Pulse Rate [Pulse Oximeter] Respiratory Rate 18 Blood Pressure 120/59 L 124/61 Blood Pressure [Le ft Arm] Pulse Oximetry Oxygen Delivery Me thod 01/26/25 21:15 01/26/25 21:22 01/26/25 21:30 Temperature 98.7 F 98.7 F Pulse Rate 75 Pulse Rate [Pulse Oximeter] Respiratory Rate 18 18 Blood Pressure 129/66 Blood Pressure [Le ft Arm] Pulse Oximetry Oxygen Delivery Me thod 01/26/25 21:37 01/26/25 21:45 01/26/25 23:35 Temperature 98.7 F 98.9 F Pulse Rate 82 Pulse Rate [Pulse Oximeter] 82 Respiratory Rate 18 16 Blood Pressure 129/73 Blood Pressure [Le ft Arm] 113/68 Pulse Oximetry 97 Oxygen Delivery Me thod Room Air 01/27/25 05:08 Temperature 98.1 F Pulse Rate Pulse Rate [Pulse Oximeter] 70 Respiratory Rate 16 Blood Pressure Blood Pressure [Le ft Arm] 102/66 Pulse Oximetry 98 Oxygen Delivery Me thod Room Air OB - DS: Summary Hospital Course Hospital Course: Beatriz is a 19 y.o. G 2 P 2001 who was admitted to [facility] for IOL.? She had a NVD that was uncomplicated. The patient feels well.? The pain is well controlled with current medications.? She has no new complaints.? She is breast feeding and reports things are going [well]. the patient has done well.? Vitals have been stable.? She has remained afebrile.? Has a good appetite, is tolerating a general diet.? She is voiding without difficulty.? She is passing gas and has [not] had a bowel movement.? She is ambulating and denies any dizziness.? Has small amount of rubra lochia. She is planning [] for prevention.? ?? Problems: []? ?? plan:? Discharge home with baby.? Follow up in 2 weeks and 6 weeks.? , may see if needed? Hgb [pending]. [Iron supplement ordered orally every other day]? [GHTN/Pre-E/Elevated BP diagnosed by elevated BP greater than 4 hours apart]? [Labs WNL or stable with trending]? [Discharge home with BP cuff if does not already have one]? [Follow up in 3-5 days]? [Call for signs/symptoms of preeclampsia]? For pain control of perineum, breast and pelvic pain, take 600 mg Ibuprofen every 6 hours as needed by mouth or 1000 mg acetaminophen (Tylenol) every 6 hours by mouth as needed. You can alternate these so you are taking something every 3 hours as needed. A heating pad can also be used for your abdomen or breasts. You may also take docusate sodium up to twice daily to soften your stools and help to prevent constipation. You may wean off of it when your stools return to normal.? Infant Gender: Male Time Spent with Patient Time attestation: Total time spent providing and/or coordinating discharge services: Discharge Plan Discharge Date of Admission: 01/26/25 14:40 Attending Physician on Admission: Daniella Ho Primary Care Provider: Provider,Not a Local Discharge Medications: No Action DHA 200 mg capsule PO ondansetron HCl 4 mg tablet 4 mg PO Q8H PRN (Reason: nausea and vomiting) Qty: 14 0RF ferrous sulfate 325 mg (65 mg iron) tablet 325 mg PO Q OTHER DAY Qty: 90 1RF Follow Up Appointments: Provider,Not a Local [Primary Care Provider] -
--- NOTE | 2025-01-27 07:59 | PM.OBPNVD1 ---
OB - PN:Subj Subjective Date Seen: 01/27/25 Narrative: The patient feels well.? The pain is well controlled with current medications.? She has no new complaints.? Urinary output is adequate and she is voiding without difficulty.? Has a good appetite, is tolerating a general diet, is passing flatus, and has not had a bowel movement.? Has scant amount of rubra lochia.? She is ambulating well. She is and reports it is going well.? OB - PN: Obj Exam Physical Exam: Vital signs: Temp Pulse Resp BP Pulse Ox O2 Del Method 98.1 F 70 16 102/66 98 Room Air 01/27/25 05:08 01/27/25 05:08 01/27/25 05:08 01/27/25 05:08 01/27/25 05:08 01/27/25 05:08 Narrative: GENERAL APPEARANCE:? normal affect, alert, no distress MOOD:? appropriate CHEST:? clear to auscultation HEART:? regular rate and rhythm ABDOMEN:? soft, non-tender the uterine fundus is At Umbilicus, Midline after rub to get back to center from left leaning fundus and is appropriate for the stage of recovery. PERINEUM:? deferred EXTREMITIES:? normal and no edema OB - PN: Obj Data Labs Labs: Laboratory Results - last 24 hr 01/26/25 01/27/25 15:07 06:18 WBC 9.42 RBC 4.12 Hgb 10.8 L 10.2 L Hct 33.1 MCV 80 MCH 26 MCHC 33 RDW Coeff of Alondra 13.5 Plt Count 192 Neut % (Auto) 70.7 Lymph % (Auto) 19.5 L [place] % (Auto) 7.2 Eos % (Auto) 1.1 Baso % (Auto) 0.5 Neut # (Auto) 6.66 Lymph # (Auto) 1.80 Canadian # (Auto) 0.70 Eos # (Auto) 0.10 Baso # (Auto) 0.05 Abs Immat Gran (auto) 0.09 Imm/Tot Granulo (auto) 1.0 Blood Type A Positive Antibody Screen NEGATIVE OB - PN: A/P Delivery Assessment and Plan (1) care and examination of lactating mother: Status: Acute Plan Plan: routine care Comments: PP Day 1 Routine care of lactating mother Pt desires to stay until tomorrow morning. May see as desired.
[2025-01-27 09:08] VITALS: BP 109/69; PULSE 71; RESP 16; TEMP 36.7; O2SAT 98
[2025-01-27] MEDS: IBUPROFEN 600 MG TABLET PO ×2 (09:11→20:03)
[2025-01-27] MEDS: DOCUSATE SODIUM 100 MG CAPSULE PO (09:12)
[2025-01-27 13:00] VITALS: BP 104/66; PULSE 70; RESP 16; TEMP 36.6; O2SAT 97
[2025-01-27 17:15] VITALS: BP 109/69; PULSE 77; RESP 16; TEMP 36.7; O2SAT 97
[2025-01-27 20:05] VITALS: BP 118/72; PULSE 79; RESP 18; TEMP 36.8; O2SAT 97
[2025-01-27 23:29] LABS: Rapid Plasma Reagin (RPR) Non Reactive (Non Reactive)
[2025-01-28 04:29] VITALS: BP 100/61; PULSE 77; RESP 17; TEMP 36.7; O2SAT 97
[2025-01-28 07:51] VITALS: BP 102/65; PULSE 69; RESP 16; TEMP 36.6; O2SAT 97
--- NOTE | 2025-01-28 08:35 | PM.OBDSVD1 ---
DS: Providers Provider Date Seen: 01/28/25 Date of admission: 01/26/25 14:40 Primary care physician: Not a Local Provider Admitting Clinician: Daniella Ho CNM Consults: 01/26/25 13:40 Consult to [employer] Development Team Lead [CONS] Routine Comment: Reason for Consult:: Assistant Chief Of Police Needed Attending Physician on discharge: Daniella Ho CNM Date of Discharge: 01/28/25 DS: Diagnosis Discharge Diagnosis (1) care and examination of lactating mother: Status: Acute (2) Anemia: Status: Acute Exam Narrative: Exam Narrative: GENERAL APPEARANCE:? normal affect, alert, no distress? MOOD:? appropriate? CHEST:? clear to auscultation and percussion? HEART:? regular rate and rhythm? ABDOMEN:? soft, non-tender the uterine fundus is U/3 and is appropriate for the stage of recovery.? PERINEUM:? mild edema of the perineum, there is a Intact perineum that is healing well.? EXTREMITIES:? normal and no edema? Const: Vital Signs, click to edit/add: Vital Signs - 24 hr 01/27/25 09:08 01/27/25 13:00 01/27/25 17:15 Temperature 98.1 F 97.9 F 98.0 F Pulse Rate [Pulse Oximeter] 71 70 77 Respiratory Rate 16 16 16 Blood Pressure [Le ft Arm] 109/69 104/66 109/69 Pulse Oximetry 98 97 97 Oxygen Delivery Me thod Room Air Room Air Room Air 01/27/25 20:05 01/28/25 04:29 01/28/25 07:51 Temperature 98.2 F 98.0 F 97.9 F Pulse Rate [Pulse Oximeter] 79 77 69 Respiratory Rate 18 17 16 Blood Pressure [Le ft Arm] 118/72 100/61 102/65 Pulse Oximetry 97 97 97 Oxygen Delivery Me thod Room Air Room Air Documenting provider has reviewed patient's vital signs: yes OB - DS: Summary Hospital Course Hospital Course: Beatriz is a 19 year old G 2 P 2 at 38.0 weeks gestation that was admitted to the Center on 01/26/25 for IOL for IUGR. She had an uncomplicated vaginal delivery. She delivered a viable male infant. She is breast feeding and feels it is going well. the patient has done well. Her pain is well controlled with current medications.? She has no new complaints.? Urinary output is adequate and she is voiding without difficulty.? Has a good appetite, is tolerating a general diet, is passing flatus, and has not had a bowel movement.? Has scant amount of rubra lochia.? She is ambulating well. She is planning progestin only oral contraceptive pill for PP contracpetion. Peripartum Data Infant delivery method: Vaginal Laceration description: None Episiotomy description: None complications: none Gender: Male Discharge Plan: Home Status at Discharge Functional status at discharge: independent ambulation Overall status at discharge: patient is progressing back to baseline Time Spent with Patient Time attestation: Total time spent providing and/or coordinating discharge services: Discharge Plan Discharge Disposition: Home, Self-Care Date of Admission: 01/26/25 14:40 Attending Provider on Discharge: Daniella Ho Primary Care Provider: Provider,Not a Local Condition: Stable Anticipated Discharge Date/Time: 01/28/25 10:00 Discharge Medications: New docusate sodium 100 mg Capsule 100 mg PO DAILY Qty: 90 0RF Rx Instructions: Take 1-2 tablets daily as needed for constipation. ibuprofen 600 mg Tablet 600 mg PO Q6H PRNQty: 60 0RF Continued DHA 200 mg capsule 200 mg PO DAILY Discontinued ondansetron HCl 4 mg tablet 4 mg PO Q8H PRN (Reason: nausea and vomiting) Qty: 14 0RF ferrous sulfate 325 mg (65 mg iron) tablet 325 mg PO Q OTHER DAY Qty: 90 1RF Discharge Orders: Discharge Order (Routine); Ordered 01/28/25 Ordered By: Daniella Ho Patient Education: OB Over the Counter Medication Information, OB Vaginal/Breast Feeding Additional Instructions: Discharge instructions were reviewed with the patient including signs and symptoms of infection and home going medications.? Lifting Restrictions: 20 pounds for 6? weeks? ?? Do not drive while taking narcotic pain meds.? Off Work or School for 6 weeks.? ?? Symptoms to report to doctor:? -Bleeding that saturates more than one pad per hour? -Passing clots larger than the size of a golf ball? -Pain not relieved by prescribed medication? -Fever above 100.4 degrees Fahrenheit? -A foul vaginal odor? -Difficulty in emotions, mood and functions? -Thoughts of hurting yourself and/or ? -Painful, reddened area in your breast? -Any drainage, redness or tenderness in your IV/epidural site? -Severe headache that doesn't improve after taking medications? -Changes in vision, including temporary loss of vision, blurred vision, and/or light sensitivity? -Upper abdominal pain (usually under ribs on the right side)? -Decrease in urination or painful, frequent urinating? -Chest pain? -Shortness of breath? -Tenderness or pain with redness and/swelling in the calf(s) of your leg? ?? Follow Up in clinic in 2 and 6 weeks.? ?? consultation services are available to all mothers and babies for the first year after delivery.? To make an appointment, please call [phone].? Activity Level: Activity as Tolerated Discharge Diet: Regular Follow Up Appointments: [facility] [Provider Group] Provider,Not a Local [Primary Care Provider] - Forms: MyHealth Info Instructions
== END 2025-01-28 11:05 | disposition home or self-care (01) | DRG 807 ==
LOC: OB OUT 14:40 → OB 14:40
PROVIDERS: Admitting Provider Advanced Practice Midwife; Visit Provider Advanced Practice Midwife
DX: O36.5930 Maternal care for other known or suspected poor fetal growth, third trimester, not applicable or unspecified (principal); Z37.0 Single live birth; O99.02 Anemia complicating childbirth; O43.193 Other malformation of placenta, third trimester; D50.9 Iron deficiency anemia, unspecified; Z3A.38 38 weeks gestation of pregnancy
CPT/HCPCS: 36415; 85018; 85025; 86592; 86850; 86900; 86901; 88307; T1013; A9270

== ENCOUNTER 2025-03-11 12:37 | Outpatient (CLI) | payer MEDICAID, SELFPAY | END 2025-03-11 12:38 | disposition home or self-care (01) | LOC: NFLDREF 12:37 | PROVIDERS: Visit Provider Midwife | DX: Z39.1 Encounter for care and examination of lactating mother (principal) | CPT/HCPCS: 87624; 87625; 88141; 88142 ==

== ENCOUNTER 2025-05-02 15:27 | Outpatient (CLI) | payer MEDICAID, SELFPAY | END 2025-05-02 15:28 | disposition home or self-care (01) | PROVIDERS: PCP Family Medicine; Visit Provider Family Medicine | DX: D50.9 Iron deficiency anemia, unspecified (principal); N13.30 Unspecified hydronephrosis | CPT/HCPCS: 80053; 82728 ==

== ENCOUNTER 2025-05-13 09:08 | Outpatient (CLI) | payer MEDICAID, SELFPAY ==
--- NOTE | 2025-05-13 09:15 | CRLHL7_ITS ---
For Patients: As a result of the Century Cures Act, medical imaging exams and procedure reports are released immediately into your electronic medical record. You may view this report before your referring provider. If you have questions, please contact your health care provider. CLINICAL HISTORY: Unspecified hydronephrosis COMPARISON: 12/02/2024 TECHNIQUE: Zaldivar scale and color Doppler images were acquired of the kidneys and urinary bladder. FINDINGS: Sonographic images reveal a symmetric appearance of the kidneys. There is no evidence of hydronephrosis, mass or calculus. The right kidney measures 11.3cm in length and the left kidney measures 9.5cm in length. The renal cortex appears of normal thickness. The urinary bladder appears normal. Color Doppler images reveal a normal appearance of both ureteral jets. There is no evidence of bladder calculi or diverticula. Prevoid bladder volume 18 cc. Postvoid bladder volume less than 1 cc. IMPRESSION: Normal renal ultrasound. Resolution of the previously noted hydronephrosis. Dictated by Jono Leigh MD @ 05/13/2025 11:07:11 AM (Electronically Signed)
== END 2025-05-13 09:09 | disposition home or self-care (01) ==
PROVIDERS: PCP Family Medicine; Visit Provider Family Medicine
DX: N13.30 Unspecified hydronephrosis (principal)
CPT/HCPCS: 76770; T1013